=== PATIENT | female | born 1970 | race Caucasian/White ===

== ENCOUNTER 2017-04-30 13:47 | Day surgery (SDC) | payer MEDICARE, MEDICAID ==
[~2017-04-30] VITALS: Ht 165.1 cm; Wt 72.0 kg
[~2017-04-30 13:47] MED LIST: ALPR1TAB2 PO; BUPIVACAINE/PF 0.25% ONE; LEVO50TA5 PO; NITR50CA PO; OXYC1TAB9 PO; QUET400T6 PO; [UNRECOGNIZED DRUG - CODE] PO; potassium citrate PO
[2017-04-30] MEDS ORDERED: LACTATED RINGERS 1,000 ML IV SCH (14:16)
[2017-04-30 14:40] VITALS: BP 117/69
[2017-04-30 15:12] LABS: HCG UR LOT HCG706132
[2017-04-30 15:22] LABS: HCG UR OBC PASS
[2017-04-30] MEDS ORDERED: CEFOTETAN 1 GM ONE (16:14)
[2017-04-30] MEDS ORDERED: ONDANSETRON 2MG/ML, 2ML ONE ×2 (16:14→17:03)
[2017-04-30] MEDS ORDERED: ROCURONIUM 10 MG/ML,10ML ONE (16:14)
[2017-04-30] MEDS ORDERED: FENTANYL PF 100 MCG/2ML ONE ×2 (16:46→17:03)
[2017-04-30] MEDS ORDERED: MIDAZOLAM 1 MG/ML, 2ML ONE (16:46)
[2017-04-30] MEDS ORDERED: PROPOFOL 10 MG/ML, 20ML ONE (16:47)
[2017-04-30] MEDS ORDERED: LIDOCAINE-MPF 2% ,5ML ONE (16:47)
[2017-04-30] MEDS: FENTANYL PF 100 MCG/2ML IV PRN ×2 (16:59→17:05)
[2017-04-30] MEDS ORDERED: OXYcodone 5 MG/5 ML ORAL.SOL UDC PO PRN (17:00)
[2017-04-30] MEDS ORDERED: ONDANSETRON 2MG/ML, 2ML IVPush PRN (17:00)
[2017-04-30] MEDS ORDERED: LABETALOL 5MG/ML, 20ML IV PRN (17:00)
[2017-04-30] MEDS ORDERED: MEPERIDINE/PF 25MG/0.5ML IVPush PRN (17:00)
[2017-04-30] MEDS ORDERED: hydrALAzine 20 MG/ML, 1ML IV PRN (17:00)
[2017-04-30] MEDS ORDERED: LORazepam 2 MG/ML, 1ML IVPush PRN (17:00)
[2017-04-30] MEDS ORDERED: PROMETHAZINE 25 MG/ML, 1ML IV PRN (17:00)
[2017-04-30] MEDS ORDERED: ALBUTEROL SULFATE 2.5 MG/3 ML NPPB PRN (17:00)
[2017-04-30] MEDS ORDERED: OXYcodone 5 MG/5 ML ORAL.SOL UDC ONE (17:12)
[2017-04-30] MEDS ORDERED: MEPERIDINE/PF 50 MG/ML ONE (17:12)
[2017-04-30] MEDS ORDERED: HYDROmorphone 2 MG/ML, 1ML ONE (17:23)
[2017-04-30] MEDS: HYDROmorphone 1 MG/ML, 1ML IV PRN ×4 (17:24→18:08)
[2017-04-30] MEDS ORDERED: HYDROmorphone 1 MG/ML, 1ML ONE (17:33)
[2017-04-30] MEDS ORDERED: GLYCOPYRROLATE 0.4 MG/2 ML, 2ML ONE (17:53)
[2017-04-30] MEDS ORDERED: NEOSTIGMINE 1 MG/ML, 10ML ONE (17:53)
[2017-04-30] MEDS ORDERED: KETOROLAC 30 MG/1 ML ONE (18:34)
[2017-04-30] MEDS ORDERED: KETOROLAC 30 MG/1 ML IVPush SCH (19:00)
== END 2017-04-30 19:35 | disposition home or self-care (01) ==
LOC: OR 13:47 → 4NOR 18:55 → OR 19:35
PROVIDERS: ATTEND Obstetrics & Gynecology Female Pelvic Medicine and Reconstructive Surgery
DX: N94.10 Unspecified dyspareunia (principal); N80.3 Endometriosis of pelvic peritoneum; E03.9 Hypothyroidism, unspecified; E78.5 Hyperlipidemia, unspecified; F32.9 Major depressive disorder, single episode, unspecified; F17.210 Nicotine dependence, cigarettes, uncomplicated; Z98.890 Other specified postprocedural states; Z90.710 Acquired absence of both cervix and uterus; Z79.82 Long term (current) use of aspirin; Z88.1 Allergy status to other antibiotic agents; Z88.0 Allergy status to penicillin
CPT/HCPCS: 58661; 58662; 81025; 88305; J1170; J2175; J2250; J2405; J2704; J2710; J3010; J3490; J7120; S0074